=== PATIENT | female | born 1980 | race Caucasian/White ===

== ENCOUNTER 2016-10-12 09:04 | Emergency (ER) | payer OTHER ==
[~2016-10-12] VITALS: Ht 157.5 cm; Wt 56.8 kg
[~2016-10-12 09:04] MED LIST: AMBIEN10 M1 PO; CYCL5TAB PO; OXYC-466 PO; ZOLP10TA5 PO
[2016-10-12 09:05] VITALS: BP 138/103; PULSE 124; RESP 16; O2SAT 100
--- NOTE | 2016-10-12 09:19 | ED.REPORT ---
HPI-Chest Pain Under 40 Date of Service Oct 12, 2016 ED Provider: Lenora Coon MD A 36 year old female with a history of degenerative joint disease, and sciatica presents to the ED complaining of chest pain, described as stabbing and pulling from low chest epigastrium straight through to back. onset 24 hours ago, upon wakening. Pain has not changed, and yesterday was 10/10. Ibuprofen did not bring relief at home. Pain is exacerbated by breathing. She tried to eat something yesterday, but felt nausea. Last BM was yesterday,loose, not bloody and did not change or influence her pain.. Patient has had similar episodes of epigastrium chest pain in the past, lasting up to 5 days. These prior episodes have not been this severe. Prior incident was dx as costocondritis Nursing Notes Chief Complaint: Chest Pain Nursing Notes Reviewed: Yes Allergies: Coded Allergies: No Known Allergies (Unverified Allergy, Unknown, 08/09/15) Scheduled Zolpidem-Expunged Drug, Do Not Renew! (Zolpidem-Expunged Drug, Do Not Renew!) 10 Mg Tablet 10 MG PO HS Scheduled PRN Cyclobenzaprine (Cyclobenzaprine) 5 Mg Tablet 5 MG PO TID PRN PRN Spasm Zolpidem (Zolpidem) 10 Mg Tablet 10 MG PO HS PRN PRN For Insomnia oxyCODONE-Acetaminophen 10-325 mg (oxyCODONE-Acetaminophen 10-325 mg) 1 Each Tablet 1 TABLET PO Q4H PRN PRN For Pain oxyCODONE-Acetaminophen 5-325 mg (oxyCODONE-Acetaminophen 5-325 mg) 1 Each Tablet 1-2 TAB PO Q6H PRN PRN For Pain General Time Seen by MD: 09:18 Chief Complaint Chest pain (epigastrium) Hx Obtained From: Patient Arrived By: Walk-in Sudden in Onset?: No Onset Occurred: Yesterday Symptom Duration: Since onset Location: : Epigastric Severity: Current: Moderate Severity: Maximum: Pain level 10 out of 10 Recent Healthcare: No recent doctor visit Similar Sx Previous: No Past Medical History Past Medical History Mirena degenerative joint disease sciatica Reports: Asthma (as child), Hypertension (was taking medication in 2006, but stopped), Denies: Congestive heart failure, Coronary artery disease, Diabetes mellitus Past Surgical History ganglion cyst removal to right wristx2. knee surgeryx2 Reports: Appendectomy, (x2), Tonsillectomy Family History Significant heart disease family history. grandmother in 50's from [place]. Uncle had cardiac stent placed in his 20's. Denies family history of blood clots. Smoking History Current Every Day Smoker Social History No THC Alcohol Use: Denies alcohol use Drug Use: Denies drug use Ambulatory Status Independent Review of Systems Review of Systems Note: Denies recent cold. Constitutional: Denies: Chills, Fever Respiratory: Reports: Pleuritic pain, Denies: Non-productive cough, Shortness of breath Cardiovascular: Reports: Chest pain (epigastrium) GI: Reports: Diarrhea (runny BM), Nausea Musculoskeletal: Denies: Extremity swelling (Denies swelling in feet or ankles) Complete sys rev & neg: except as marked. Physical Exam Initial Vital Signs Vital Signs (First) Date Time Temp Pulse Resp B/P Pulse Ox O2 Delivery O2 Flow Rate FiO2 10/12/16 09:05 36.8 124 16 138/103 100 Room Air Initial VS: Reviewed General/Constitutional: Awake, Alert Appropriate. In pain, but completely cooperative. Respiratory / Chest: Atraumatic, Breath sounds NL, Breath sounds = bilat, No respiratory distress, No rales, No rhonchi, No wheezing Chest Wall / Ribs: Negative: Chondral cartil tender L, Chondral cartil tender R , Costochond cart tender L, Costochond cart tender R Tenderness with deep inspiration. Cardiovascular: Heart rate NL, Regular rhythm, Heart sounds NL, No gallop, No murmurs, No rubs, Peripheral circulation NL (well perfused) Abdomen: No guarding, No rebound Tenderness/Guarding/Rebound: Positive: Tender LUQ... (Moderate), Tender RUQ... (Moderate), Tender epigastric (Signifigant tenderness mid-epigastric) Back: Non-tender (No CVA tednerness), No CVA tenderness Skin: Atraumatic, Color NL, No rash, Warm, Dry Neurologic: Oriented X3, Speech NL Head / Eyes: Atraumatic, Normocephalic, PERRL, EOMI Interpretation & Diagnostics Lab Results Interpretation Result Diagram: 10/12/16 0938 10/12/16 0938 Test 10/12/16 09:38 10/12/16 09:39 White Blood Count 10.0th/mm3 (3.8-10.1) Red Blood Count 5.00mil/mm3 (3.90-5.20) Hemoglobin 15.7g/dL (12.0-15.6) Hematocrit 46.1% (35.0-46.0) Mean Corpuscular Volume 92.2fL (81-100) Mean Corpuscular Hemoglobin 31.4pg (27.0-35.0) Mean Corpuscular Hemoglobin Concent 34.1% (32.0-37.0) Red Cell Distribution Width 13.6% (12.3-15.4) Platelet Count 352bil/L (150-400) Neutrophils (%) (Auto) 72.9% (40-74) Lymphocytes (%) (Auto) 18.8% (14-46) Monocytes (%) (Auto) 6.1% (4-12) Eosinophils (%) (Auto) 1.7% (0-5) Basophils (%) (Auto) 0.3% (0-3) D-Dimer < 0.50mg/L FEU (<0.50) Sodium Level 140mEq/L (134-144) Potassium Level 3.3mEq/L (3.5-5.2) Chloride Level 102mEq/L (97-108) Carbon Dioxide Level 20mmol/L (18-29) Blood Urea Nitrogen 7mg/dL (6-20) Creatinine 0.69mg/dL (0.57-1.00) Estimat Glomerular Filtration Rate 138mL/min (>59) Glucose Level 123mg/dL (60-99) Calcium Level 9.9mg/dL (8.5-10.1) Magnesium Level 2.1mg/dL (1.6-2.6) Total Bilirubin 0.5mg/dL (0.0-1.2) Aspartate Amino Transf (AST/SGOT) 19U/L (0-50) Alanine Aminotransferase (ALT/SGPT) 15U/L (0-32) Alkaline Phosphatase 107U/L (25-150) Troponin T < 0.010ug/L (0.0-0.011) Total Protein 7.3g/dL (6.4-8.4) Albumin 4.7g/dL (3.4-5.0) Lipase 34U/L (13-60) Hold Paulino Top Tube Received (Received) ECG Interpretation ECG Interpretation: Rate is 103. Sinus tachycardia. Probable left atrial enlargement. No ischemia. Simialr to 08/11/15/ Time: 09:17 Interpreted by: ED physician X-Ray Chest Interpretation Chest Xray Interpretation: IMPRESSION: No acute cardiopulmonary disease. Dictated by: Pennie Rockwell M.D. on 10/12/2016 at 9:57 Approved by: Pennie Rockwell M.D. on 10/12/2016 at 10:00 Interpretation / Wet Read by: Interpret - Radiologist CT Abd / Pelvis Interpretation IMPRESSION: 1. An air-fluid level in stomach which is nonspecific and could be secondary to gastroenteritis. 2. Mild thickening transverse colon and descending colon. In the absence of oral contrast, this finding could be caused by artifact or secondary to mild colitis. 3. Two small, slightly complex cystic lesions in kidneys, one on each side. A followup ultrasound is suggested. Dictated by: Pennie Rockwell M.D. on 10/12/2016 at 12:17 Re-Eval/Medical Decision Source of Hx: Old records Re-Evaluation/Progress #1: Time of Eval: 09:25 Re-Evaluation/Progress Note: Explained EKG results and treatment plan. Re-Evaluation/Progress #2: Time of Eval: 13:21 Patient Status: Condition improved Re-Evaluation/Progress Note: Rechecked patient, explained test results, diagnosis and plan for discharge. Patient understands and agrees with the plan. All questions addressed. Counseled Regarding: Diagnosis, Lab results, Need for follow-up, When/why to return to ED Discharge & Departure Primary Impression: Colitis Additional Impression: Renal cyst Ruled Out: Cholecystitis, Diverticulitis, Appendicitis, Pneumonia, Perforated duodenal bulb ulcer, Gastric mass Disposition: Home Discharge Condition All VS Reviewed: Yes Condition: Improved Additional Instructions: Your labs and studies are relatively reassuring. Her CT scan shows some mild inflammation along your colon and this likely explains the pain that you are having. There is no evidence of infection and there is nothing that we need to do about this currently. Her CT scan also confirms there are no life- threatening findings no masses no tumors. There was an incidental note of small cysts on both of your kidneys, at some point it would be appropriate to have ultrasounds done of these cysts.Again, this is an incidental finding and likely not clinically significant U cane and uses occasional pain medication for the severe abdominal pain. This is a temporizing measure only and not meant for long-term use. Please follow-up with your regular doctor. Thank you for coming in today Referrals: Arron Orlando DO (PCP) Selena Attestation Portions of this note were transcribed by Ted Goodson. I, Dr. Coon personally performed the history, physical exam and medical decision-making; I reviewed and confirmed the accuracy of the information in the transcribed note. Signed by: Selena Hernandez, 10/12/2016, 1325. copies to: Arron Orlando Shawna L MD Oct 12, 2016 09:19 Ted Goodson Oct 12, 2016 09:26
[2016-10-12 09:42] LABS: BASOPHILS % (AUTO) 0.3 % (0-3); EOSINOPHILS % (AUTO) 1.7 % (0-5); MONOCYTES % (AUTO) 6.1 % (4-12); Mean Corpuscular Hemoglobin 31.4 pg (27.0-35.0); Mean Corpuscular Volume 92.2 fL (81-100); NEUTROPHILS % (AUTO) 72.9 % (40-74); Platelet Count 352 bil/L (150-400)
--- NOTE | 2016-10-12 10:02 | DRSVH ---
PROCEDURE: X-RAY CHEST ONE VIEW, PORTABLE ([id number]) INDICATIONS: cp TECHNIQUE: One view of the chest was acquired. COMPARISON: [facility], CR, XR CHEST 1VW (PORTABLE), 08/09/2015, 10:09. FINDINGS: Surgical changes and devices: None. Lungs and pleura: No pleural effusions or pneumothorax. Lungs are clear. Mediastinum: Mediastinal contours appear normal. Heart size is normal. Bones and chest wall: No suspicious bony lesions. Overlying soft tissues appear unremarkable. IMPRESSION: No acute cardiopulmonary disease. Dictated by: Pennie Rockwell M.D. on 10/12/2016 at 9:57 Approved by: Pennie Rockwell M.D. on 10/12/2016 at 10:00
[2016-10-12] MEDS ORDERED: 0.9% Sodium Chloride 1,000 ML IV ONE (10:05)
[2016-10-12 10:13] LABS: TROPONIN T < 0.010 ug/L (0.0-0.011)
[2016-10-12] MEDS: HYDROmorphone 0.5 mg/0.5 mL iSecure Syringe IVPUSH PRN ×2 (10:13→12:23)
[2016-10-12 10:19] LABS: Magnesium 2.1 mg/dL (1.6-2.6)
[2016-10-12 10:24] VITALS: BP 129/92; PULSE 101; RESP 16; O2SAT 100
--- NOTE | 2016-10-12 12:31 | DRSVH ---
PROCEDURE: CT ABDOMEN AND PELVIS WITH CONTRAST ([id number]) INDICATIONS: acute upper abdominal pain radiates to back TECHNIQUE: After the administration of intravenous contrast, 5 mm thick sections acquired from the diaphragm to the symphysis. 5 mm coronal and sagittal reformats were acquired. For radiation dose reduction, the following was used: automated exposure control, adjustment of mA and/or kV according to patient siz e. COMPARISON: None. FINDINGS: Image quality: Excellent. ABDOMEN: Lung bases: Lung bases are clear. Heart size is normal. Solid organs: Liver and spleen are normal in size and enhancement. Gallbladder is normal. Biliary system is non dilated. Pancreas enhances normally. No adrenal nodules. Kidneys demonstrate normal size and enhancement, without hydronephrosis. There is a 1.3 cm hypodense nodule in the superior kirsten e of the right kidney demonstrating irregular wall and partial wall calcification, probably a complex cyst. A 1 cm hypodense nodule in the left kidney is noted with mild wall thickness, also likely mild ly complex cyst. Both nodules are compatible with Bosniak category 2F lesions. Peritoneum and bowel: There is an air/fluid level in stomach, which is nonspecific. Small bowel loop s demonstrate normal wall thickness and caliber. There is equivocal thickening in transverse colon a nd descending colon The appendix is absent. No free fluid or air. Nodes and vessels: No retroperitoneal or mesenteric adenopathy by size criteria. Aorta and inferior vena cava are normal in size. Miscellaneous: No ventral hernias. PELVIS: Genitourinary: Bladder wall thickness is normal. The uterus is normal. There is an IUD. Ovaries are unremarkable. No pathological free fluid in cul-de-sac. Miscellaneous: No inguinal hernias or adenopathy. Bones: No suspicious bony lesions. No vertebral body compression fractures. IMPRESSION: 1. An air-fluid level in stomach which is nonspecific and could be secondary to gastroenteritis. 2. Mild thickening transverse colon and descending colon. In the absence of oral contrast, this findi ng could be caused by artifact or secondary to mild colitis. 3. Two small, slightly complex cystic lesions in kidneys, one on each side. A followup ultrasound is suggested. Dictated by: Pennie Rockwell M.D. on 10/12/2016 at 12:17 Approved by: Pennie Rockwell M.D. on 10/12/2016 at 12:30
[2016-10-12] MEDS ORDERED: OXYC1TAB24 PO (13:27)
[2016-10-12 13:48] VITALS: BP 138/90; PULSE 76; RESP 16; O2SAT 99
== END 2016-10-12 13:48 | disposition home or self-care (01) ==
LOC: SED 09:04
DX: K52.9 Noninfective gastroenteritis and colitis, unspecified (principal); N28.1 Cyst of kidney, acquired; J45.909 Unspecified asthma, uncomplicated; I10 Essential (primary) hypertension; F17.200 Nicotine dependence, unspecified, uncomplicated
CPT/HCPCS: 36415; 71010; 74177; 80053; 83690; 83735; 84484; 85025; 85378; 93005; 96374; 99285; J1170; J7030; Q9967